=== PATIENT | male | born 1990 | race Two or more races ===

== ENCOUNTER 2018-01-14 09:45 | Emergency (ER) | payer OTHER, SELFPAY ==
[~2018-01-14] VITALS: Ht 165.1 cm; Wt 63.0 kg
[2018-01-14] MEDS ORDERED: MORPHINE SULFATE 4 MG/ML, 1ML ONE (10:13)
[2018-01-14] MEDS ORDERED: ONDANSETRON ODT 4 MG ONE (10:13)
[2018-01-14] MEDS ORDERED: MORPHINE SULFATE 4 MG/ML, 1ML IVPush PRN (10:30)
[2018-01-14] MEDS ORDERED: ONDANSETRON ODT 4 MG PO ONE (10:30)
[2018-01-14] MEDS ORDERED: CEFTRIAXONE 250 MG ONE (11:44)
[2018-01-14] MEDS ORDERED: AZITHROMYCIN 250 MG TABLET ONE (11:44)
[2018-01-14 11:58] VITALS: BP 125/72
[2018-01-14] MEDS ORDERED: AZITHROMYCIN 500 MG TABLET PO ONE (12:00)
[2018-01-14] MEDS ORDERED: CEFTRIAXONE 250 MG IM ONE (12:00)
== END 2018-01-14 11:59 | disposition home or self-care (01) ==
LOC: ED 11:12
DX: N45.1 Epididymitis (principal)
CPT/HCPCS: 76870; 93975; 96372; 96374; 99284; J0696; Q0162

== ENCOUNTER 2018-07-01 21:10 | Emergency (ER) | payer OTHER ==
[~2018-07-01] VITALS: Ht 162.6 cm; Wt 63.7 kg
[2018-07-01 21:12] VITALS: BP 131/88
== END 2018-07-02 00:25 | disposition home or self-care (01) ==
LOC: ED 23:59
DX: M79.641 Pain in right hand (principal); M25.531 Pain in right wrist; M79.631 Pain in right forearm
CPT/HCPCS: 99284